=== PATIENT | female | born 1985 | race Two or more races ===

== ENCOUNTER 2022-11-13 20:39 | Emergency (ER) | payer SELFPAY ==
[~2022-11-13] VITALS: Ht 160 cm; Wt 81.6 kg
[2022-11-13 20:56] VITALS: BP 159/96
--- NOTE | 2022-11-13 20:56 | NUR ---
[id number] FRM HOME ANXIETY X 2 DAYS, STRESSED DUE TO MOMS RECENT DENIES CP , NO SI/HI. PT A/OX4. TOLERATING R/A WELL WITH NO RESP DISTRESS. SAFETY MEASURES IN PLACE.
[2022-11-13] MEDS ORDERED: LORAZEPAM 1 MG TABLET ONE (21:19)
[2022-11-13] MEDS: LORAZEPAM 1 MG TABLET PO ONE (21:20)
--- NOTE | 2022-11-13 21:21 | NUR ---
EMT AT PT'S BEDSIDE FOR EKG
--- NOTE | 2022-11-13 21:53 | NUR ---
Patient discharged to home in stable condition. Written and verbal after care instructions given. Patient verbalizes understanding of instruction.
== END 2022-11-13 21:54 | disposition home or self-care (01) ==
LOC: ER 20:46
DX: F41.9 Anxiety disorder, unspecified (principal); Z88.0 Allergy status to penicillin